=== PATIENT | female | born 1995 | race Caucasian/White ===

== ENCOUNTER 2023-06-06 19:25 | Emergency (ER) | payer BC, OTHER ==
[2023-06-06] MEDS ORDERED: Sodium Chloride 0.9% 1000 ML 1,000 ML ONE (20:08)
[2023-06-06] MEDS ORDERED: TYLENOL 325 MG ONE (20:08)
[2023-06-06] MEDS: Sodium Chloride 0.9% 1000 ML 1,000 ML IV STA (20:12)
[2023-06-06] MEDS: TYLENOL 325 MG PO STA (20:12)
--- NOTE | 2023-06-06 20:13 | ERPHSYRPT ---
- History of Present Illness Time Seen by Provider: 06/06/23 19:55 Source: patient Exam Limitations: no limitations Patient Subjective Stated Complaint: sore throat, headache, fever, body aches that started today Triage Nursing Assessment: pt ambulatory to bed by self with steady gait, pt alert and oriented x3, skin pwd, pt c/o headache, sorethroat, body aches, fever that started today, voice is hoarse during triage, pt febrile of 102.8 Physician History: 28-year-old female presents to our ED for evaluation of fever frontal headache sore throat body aches. Symptoms symptoms have been ongoing for 1 day. Patient has been coughing excessively. Cough is dry nonproductive. Patient has mild laryngitis on exam. No rash. No vomiting no diarrhea. No neck pain no nuchal rigidity. No photophobia no meningeal signs. Symptoms are constant. Symptoms are moderate in intensity. No specific worsening or improving factors. Patient denies a history of the same. She voices no other complaints or concerns at this time. Portions of this note were created with voice recognition technology. There may be grammatical, spelling, punctuation or sound alike errors Timing/Duration: today Severity: moderate Modifying Factors: Improves With: nothing Associated Symptoms: cough, fever, No shortness of breath, No rash Allergies/Adverse Reactions: Opioids - Morphine Analogues Adverse Reaction (Verified 06/06/23 19:43) Vomiting Hx Tetanus, Diphtheria Vaccination/Date Given: Yes Hx Influenza Vaccination/Date Given: No Hx Pneumococcal Vaccination/Date Given: No Immunizations Up to Date: No Travel Risk - International Travel Have you traveled outside of the country in past 3 weeks: No - Emerging Infectious Disease Are you exhibiting symptoms associated with any current EIDs: Yes Symptoms: Fever, Headaches/Body Aches/ - Review of Systems Constitutional: No Symptoms, No Fever, No Chills Eyes: No Symptoms Ears, Nose, & Throat: No Symptoms Respiratory: No Symptoms, No Cough, No Dyspnea Cardiac: No Symptoms, No Chest Pain, No Edema, No Syncope Abdominal/Gastrointestinal: No Symptoms, No Abdominal Pain, No Nausea, No Vomiting, No Diarrhea Genitourinary Symptoms: No Symptoms, No Dysuria Musculoskeletal: No Symptoms, No Back Pain, No Neck Pain Skin: No Symptoms, No Rash Neurological: No Symptoms, No Dizziness, No Focal Weakness, No Sensory Changes Psychological: No Symptoms Endocrine: No Symptoms Hematologic/Lymphatic: No Symptoms Immunological/Allergic: No Symptoms All Other Systems: Reviewed and Negative - Past Medical History Pertinent Past Medical History: Yes Neurological History: No Pertinent History ENT History: Other Cardiac History: No Pertinent History Respiratory History: Asthma Endocrine Medical History: Hypoglycemia Musculoskeletal History: No Pertinent History GI Medical History: No Pertinent History History: No Pertinent History Psycho-Social History: No Pertinent History Female Reproductive Disorders: Menstrual Problems Other Medical History: SCOLIOSIS - Past Surgical History Past Surgical History: Yes Gastrointestinal: Exploratory Laparoscopy Other Surgical History: wisdom teeth removed Significant Family History: no pertinent family hx - Female History Hx Last Menstrual Period: 05/23/23 Hx Now: No - Social History Smoking Status: Never smoker Exposure to second hand smoke: No Alcohol Use: None Drug Use: none Patient Lives Alone: No - Nursing Vital Signs Nursing Vital Signs: Initial Vital Signs Pulse Rate 127 H 06/06/23 19:43 Respiratory Rate 21 06/06/23 19:43 Blood Pressure 130/90 06/06/23 19:43 O2 Sat by Pulse Oximetry 100 06/06/23 19:43 Pain Scale Pain Intensity 2 - Physical Exam General Appearance: no apparent distress, alert Eye Exam: PERRL/EOMI, eyes nml inspection Ears, Nose, Throat Exam: normal ENT inspection, TMs normal, pharynx normal, other (Dry oral mucous membranes. Patient states her right ear is painful and her hearing acuity is decreased. She says her hearing acuity is has been decreased since her ear infection in March and this is not acute. However the pain is new. Right TM injected) Neck Exam: normal inspection, non-tender, supple, full range of motion, No meningismus, No Brudzinski, No Kernig's Respiratory Exam: normal breath sounds, lungs clear, airway intact, No respi ratory distress Cardiovascular Exam: regular rate/rhythm, normal heart sounds, normal peripheral pulses Gastrointestinal/Abdomen Exam: soft, normal bowel sounds, No tenderness, No mass Back Exam: normal inspection, normal range of motion, No CVA tenderness, No vertebral tenderness Extremity Exam: normal inspection, normal range of motion, pelvis stable Neurologic Exam: alert, oriented x 3, cooperative, multimedia programmer II-XII nml as tested, normal mood/affect, sensation nml, No motor deficits Skin Exam: normal color, warm, dry, No rash Lymphatic Exam: No adenopathy SpO2 Interpretation: normal SpO2: 100 O2 Delivery: Room Air - Course Nursing assessment & vital signs reviewed: Yes EKG Interpreted by Me: RATE (125), Sinus Tach, NORMAL AXIS, NORMAL INTERVALS - CT Exams Chest CT Interpretation: Tele-radiologist Report (No PE, negative CT chest) Ordered Tests: Active Orders 24 hr Category Date Time Status Biomass Plant Manager STAT Care 06/06/23 20:04 Active EKG-ER Only STAT Care 06/06/23 20:02 Active IV Insertion STAT Care 06/06/23 20:02 Active Pulse Oximetry (ED) STAT Care 06/06/23 20:02 Active CHEST WITH CONTRAST [CT] Stat Exams 06/06/23 20:58 Taken BLOOD CULTURE Stat Lab 06/06/23 20:10 Received CBC W DIFF Stat Lab 06/06/23 20:00 Completed CBC W DIFF Stat Lab 06/07/23 02:00 Completed CMP Stat Lab 06/06/23 20:00 Completed D-DIMER QUANTITATIVE Stat Lab 06/06/23 20:00 Completed HCG QUALITATIVE, URINE Stat Lab 06/06/23 20:08 Completed UA W/RFX UR CULTURE Stat Lab 06/06/23 20:08 Completed Medication Summary Generic Name Dose Route Start Last Admin Trade Name Freq PRN Reason Stop Dose Admin Ceftriaxone Sodium 1 gm in 100 mls @ 200 mls/hr 06/07/23 02:28 Rocephin 1 Gm / 100 Ml Nacl IV 06/07/23 02:57 STAT ONE Discontinued Medications Generic Name Dose Route Start Last Admin Trade Name Freq PRN Reason Stop Dose Admin Acetaminophen 650 mg 06/06/23 20:07 06/06/23 20:12 Acetaminophen 325 Mg Tablet PO 06/06/23 20:08 650 mg STAT STA Administration Acetaminophen Confirm 06/06/23 20:08 Acetaminophen 325 Mg Tablet Administered 06/06/23 20:09 Dose 650 mg .ROUTE .STK-MED ONE Acetaminophen 650 mg 06/07/23 00:09 06/07/23 00:14 Acetaminophen 325 Mg Tablet PO 06/07/23 00:10 650 mg STAT STA Administration Acetaminophen Confirm 06/07/23 00:11 Acetaminophen 325 Mg Tablet Administered 06/07/23 00:12 Dose 650 mg .ROUTE .STK-MED ONE Sodium Chloride 1,000 mls @ 999 mls/hr 06/06/23 20:02 06/06/23 21:17 Sodium Chloride 0.9% 1000 Ml IV 06/06/23 21:02 Infused .Q1H1M STA Infusion Sodium Chloride Confirm 06/06/23 20:08 Sodium Chloride 0.9% 1000 Ml Administered 06/06/23 20:09 Dose 1,000 mls @ ud .ROUTE .STK-MED ONE Lactated Ringer's 1,000 mls @ 999 mls/hr 06/07/23 00:05 06/07/23 00:14 Lactated Ringers IV 06/07/23 01:05 999 mls/hr .Q1H1M ONE Administration Lactated Ringer's Confirm 06/07/23 00:11 Lactated Ringers Administered 06/07/23 00:12 Dose 1,000 mls @ ud IV .STK-MED ONE Ibuprofen 400 mg 06/06/23 20:53 06/06/23 20:55 Ibuprofen 400 Mg Tablet PO 06/06/23 20:54 400 mg STAT ONE Administration Ibuprofen Confirm 06/06/23 20:54 Ibuprofen 400 Mg Tablet Administered 06/06/23 20:55 Dose 400 mg .ROUTE .STK-MED ONE Lab/Rad Data: Laboratory Result Diagrams 06/07/23 02:00 06/06/23 20:00 Laboratory Results 06/07/23 06/06/23 06/06/23 Range/Units 02:00 20:10 20:08 WBC 15.2 H (4.0-10.5) x10^3/uL RBC 3.62 L (4.1-5.4) x10^6/uL Hgb 11.1 L (12.0-16.0) g/dL Hct 33.6 L (35-47) % MCV 92.8 (78-100) fL MCH 30.7 (26-32) pg MCHC 33.0 (32-36) g/dL RDW 11.6 (11.5-14.0) % Plt Count 333 (150-450) x10^3/uL MPV 9.3 (7.5-11.0) fL Gran % 81.6 H (36.0-66.0) % Immature Gran % (Auto) 0.3 (0.00-0.4) % Nucleat RBC Rel Count 0.0 (0.00-0.1) % Eos # (Auto) 0.07 (0-0.5) x10^3/uL Immature Gran # (Auto) 0.04 H (0.00-0.03) x10^3u/L Absolute Lymphs (auto) 1.86 (1.0-4.6) x10^3/uL Absolute Monos (auto) 0.75 (0.0-1.3) x10^3/uL Absolute Nucleated RBC 0.00 (0.00-0.01) x10^3u/L Lymphocytes % 12.3 L (24.0-44.0) % Monocytes % 5.0 (0.0-12.0) % Eosinophils % 0.5 (0.00-5.0) % Basophils % 0.3 (0.0-0.4) % Absolute Granulocytes 12.39 H (1.4-6.9) x10^3/uL Basophils # 0.04 (0-0.4) x10^3/uL D-Dimer (0.0-0.50) mg/L Sodium (135-145) mmol/L Potassium (3.5-5.1) mmol/L Chloride (98-107) mmol/L Carbon Dioxide (22-30) mmol/L Anion Gap (5-15) MEQ/L BUN (7-17) mg/dL Creatinine (0.52-1.04) mg/dL Estimated GFR ML/MIN Glucose (74-106) mg/dL Calcium (8.4-10.2) mg/dL Total Bilirubin (0.2-1.3) mg/dL AST (14-36) U/L ALT (0-35) U/L Alkaline Phosphatase (38-126) U/L Serum Total Protein (6.3-8.2) g/dL Albumin (3.5-5.0) g/dL Urine Color (Yellow) Urine Appearance (Clear) Urine pH (4.6-8.0) Ur Specific [place] (1.005-1.030) Urine Protein (Negative) Urine Glucose (UA) (Negative) mg/dL Urine Ketones (Negative) Urine Blood (Negative) Urine Nitrite (Negative) Urine Bilirubin (Negative) Urine Urobilinogen (0.2) mg/dL Ur Leukocyte Esterase (Negative) U Hyaline Cast (Auto) (0-2) /LPF Urine Microscopic RBC (0-5) /HPF Urine Microscopic WBC (0-5) /HPF Ur Epithelial Cells (None Seen) /HPF Urine Bacteria (None Seen) /HPF Urine Culture Reflexed (NO) Urine HCG, Qual NEGATIVE (NEGATIVE) Influenza Type A Ag NEGATIVE (NEGATIVE) Influenza Type B Ag NEGATIVE (NEGATIVE) RSV (PCR) NEGATIVE (NEGATIVE) SARS-CoV-2 (PCR) NEGATIVE (NEGATIVE) Group A Strep Antibody NOT DETECTED (NEGATIVE) 06/06/23 06/06/23 06/06/23 Range/Units 20:08 20:00 20:00 WBC (4.0-10.5) x10^3/uL RBC (4.1-5.4) x10^6/uL Hgb (12.0-16.0) g/dL Hct (35-47) % MCV (78-100) fL MCH (26-32) pg MCHC (32-36) g/dL RDW (11.5-14.0) % Plt Count (150-450) x10^3/uL MPV (7.5-11.0) fL Gran % (36.0-66.0) % Immature Gran % (Auto) (0.00-0.4) % Nucleat RBC Rel Count (0.00-0.1) % Eos # (Auto) (0-0.5) x10^3/uL Immature Gran # (Auto) (0.00-0.03) x10^3u/L Absolute Lymphs (auto) (1.0-4.6) x10^3/uL Absolute Monos (auto) (0.0-1.3) x10^3/uL Absolute Nucleated RBC (0.00-0.01) x10^3u/L Lymphocytes % (24.0-44.0) % Monocytes % (0.0-12.0) % Eosinophils % (0.00-5.0) % Basophils % (0.0-0.4) % Absolute Granulocytes (1.4-6.9) x10^3/uL Basophils # (0-0.4) x10^3/uL D-Dimer 0.52 H (0.0-0.50) mg/L Sodium 137 (135-145) mmol/L Potassium 3.7 (3.5-5.1) mmol/L Chloride 101 (98-107) mmol/L Carbon Dioxide 27 (22-30) mmol/L Anion Gap 13.4 (5-15) MEQ/L BUN 12 (7-17) mg/dL Creatinine 0.74 (0.52-1.04) mg/dL Estimated GFR 113.7 ML/MIN Glucose 115 H (74-106) mg/dL Calcium 9.8 (8.4-10.2) mg/dL Total Bilirubin 0.70 (0.2-1.3) mg/dL AST 28 (14-36) U/L ALT 19 (0-35) U/L Alkaline Phosphatase 83 (38-126) U/L Serum Total Protein 8.1 (6.3-8.2) g/dL Albumin 4.7 (3.5-5.0) g/dL Urine Color Yellow (Yellow) Urine Appearance Clear (Clear) Urine pH 7.5 (4.6-8.0) Ur Specific [place] 1.015 (1.005-1.030) Urine Protein Negative (Negative) Urine Glucose (UA) Negative (Negative) mg/dL Urine Ketones Negative (Negative) Urine Blood Moderate A (Negative) Urine Nitrite Negative (Negative) Urine Bilirubin Negative (Negative) Urine Urobilinogen 0.2 (0.2) mg/dL Ur Leukocyte Esterase Negative (Negative) U Hyaline Cast (Auto) NONE SEEN (0-2) /LPF Urine Microscopic RBC 6-10 A (0-5) /HPF Urine Microscopic WBC 3-5 (0-5) /HPF Ur Epithelial Cells None Seen (None Seen) /HPF Urine Bacteria Rare A (None Seen) /HPF Urine Culture Reflexed NO (NO) Urine HCG, Qual (NEGATIVE) Influenza Type A Ag (NEGATIVE) Influenza Type B Ag (NEGATIVE) RSV (PCR) (NEGATIVE) SARS-CoV-2 (PCR) (NEGATIVE) Group A Strep Antibody (NEGATIVE) 06/06/23 Range/Units 20:00 WBC 19.7 H (4.0-10.5) x10^3/uL RBC 4.14 (4.1-5.4) x10^6/uL Hgb 12.8 (12.0-16.0) g/dL Hct 38.1 (35-47) % MCV 92.0 (78-100) fL MCH 30.9 (26-32) pg MCHC 33.6 (32-36) g/dL RDW 11.6 (11.5-14.0) % Plt Count 417 (150-450) x10^3/uL MPV 9.6 (7.5-11.0) fL Gran % 90.4 H (36.0-66.0) % Immature Gran % (Auto) 0.3 (0.00-0.4) % Nucleat RBC Rel Count 0.0 (0.00-0.1) % Eos # (Auto) 0.06 (0-0.5) x10^3/uL Immature Gran # (Auto) 0.06 H (0.00-0.03) x10^3u/L Absolute Lymphs (auto) 0.99 L (1.0-4.6) x10^3/uL Absolute Monos (auto) 0.72 (0.0-1.3) x10^3/uL Absolute Nucleated RBC 0.00 (0.00-0.01) x10^3u/L Lymphocytes % 5.0 L (24.0-44.0) % Monocytes % 3.7 (0.0-12.0) % Eosinophils % 0.3 (0.00-5.0) % Basophils % 0.3 (0.0-0.4) % Absolute Granulocytes 17.79 H (1.4-6.9) x10^3/uL Basophils # 0.05 (0-0.4) x10^3/uL D-Dimer (0.0-0.50) mg/L Sodium (135-145) mmol/L Potassium (3.5-5.1) mmol/L Chloride (98-107) mmol/L Carbon Dioxide (22-30) mmol/L Anion Gap (5-15) MEQ/L BUN (7-17) mg/dL Creatinine (0.52-1.04) mg/dL Estimated GFR ML/MIN Glucose (74-106) mg/dL Calcium (8.4-10.2) mg/dL Total Bilirubin (0.2-1.3) mg/dL AST (14-36) U/L ALT (0-35) U/L Alkaline Phosphatase (38-126) U/L Serum Total Protein (6.3-8.2) g/dL Albumin (3.5-5.0) g/dL Urine Color (Yellow) Urine Appearance (Clear) Urine pH (4.6-8.0) Ur Specific [place] (1.005-1.030) Urine Protein (Negative) Urine Glucose (UA) (Negative) mg/dL Urine Ketones (Negative) Urine Blood (Negative) Urine Nitrite (Negative) Urine Bilirubin (Negative) Urine Urobilinogen (0.2) mg/dL Ur Leukocyte Esterase (Negative) U Hyaline Cast (Auto) (0-2) /LPF Urine Microscopic RBC (0-5) /HPF Urine Microscopic WBC (0-5) /HPF Ur Epithelial Cells (None Seen) /HPF Urine Bacteria (None Seen) /HPF Urine Culture Reflexed (NO) Urine HCG, Qual (NEGATIVE) Influenza Type A Ag (NEGATIVE) Influenza Type B Ag (NEGATIVE) RSV (PCR) (NEGATIVE) SARS-CoV-2 (PCR) (NEGATIVE) Group A Strep Antibody (NEGATIVE) - Progress Progress: improved Progress Note: 28-year-old female presents emergency department for evaluation of fever, frontal headache body aches, cough sore throat. Patient complained of right ear pain during exam. Right TM is injected. No bulging. No mastoid tenderness. She reports diminished hearing acuity right ear currently has a follow-up appointment with a ENT physician however this appointment is not for another 2 weeks. In light of her symptoms or fever and leukocytosis patient received a dose of Rocephin in our ED. A prescription for Augmentin forwarded to patient's pharmacy. Dry oral mucous membranes observed on exam. IV fluids administered. Leukocytosis improved from 19-15. Blood cultures obtained. Results pending symptoms started today. No photophobia no neck pain nuchal rigidity no meningeal signs. Nonremarkable neurologic exam physical exam reveals dry oral mucous membranes. Mother at bedside they voiced no other complaints or concerns at this time. Portions of this note were created with voice recognition technology. There may be grammatical, spelling, punctuation or sound alike errors Complexity of problem addressed is moderate acute complicated No critical care time Complex of data reviewed and analyzed is moderate. Test ordered test reviewed results analyzed and correlated clinically with history and physical exam Risk of complication and or risk of morbidity/mortality of patient management is moderate. Patient received IM Rocephin and prescription for Augmentin forwarded to patient's pharmacy. Vital stable. Time spent to discharge patient is approximately 20 minutes. Plan of care established for shared decision making. No social determinants of health present impede follow-up. Portions of this note were created with voice recognition technology. There may be grammatical, spelling, punctuation or sound alike error 06/07/23 02:34 Counseled pt/family regarding: lab results, diagnosis, rad results - Departure Departure Disposition: Home Clinical Impression: Sore throat (viral), Viral syndrome, Right otitis media, Dehydration Condition: Stable Critical Care Time: No Referrals: KARLY QUINTANILLA [ACTIVE STAFF] - Follow up/PCP as directed Additional Instructions: Discharge/Care Plan MEGAN HORN was seen on 06/07/23 in the Emergency Room. The patient was counseled regarding Diagnosis,Lab results, Imaging studies, need for follow up and when to return to the Emergency Room. Prescriptions given: Discharge Note I have spoken with the patient and/or caregivers. I have explained the patient's condition, diagnosis and treatment plan based on the information available to me at this time. I have answered the patient's and/or caregiver's questions and addressed any concerns. The patient and/or caregivers have as good understanding of the patient's diagnosis, condition and treatment plan as can be expected at this point. The vital signs have been stable. The patient's condition is stable and appropriate for discharge from the emergency department. The patient will pursue further outpatient evaluation with the primary care physician or other designated or consulting physician as outlined in the discharge instructions. The patient and/or caregivers are agreeable to this plan of care and follow-up instructions have been explained in detail. The patient and/or caregivers have received these instruction. The patient/and or caregivers are aware that any significant change in condition or worsening of symptoms should prompt an immediate return to this or the closest emergency department or call 911. Prescriptions: Amox Tr/Potass Clav. 875 mg [Augmentin 875-125 Tablet] 875 mg PO BID 7 Days #14 tablet
[2023-06-06 20:22] LABS: Absolute Neutrophil Ct (ANC) 17.79 x10^3/uL (1.4-6.9); BASOPHIL % 0.3 % (0.0-0.4); Basophil (Absolute #) 0.05 x10^3/uL (0-0.4); Eosinophil % 0.3 % (0.00-5.0); Eosinophil (Absolute #) 0.06 x10^3/uL (0-0.5); Hematocrit 38.1 % (35-47); Hemoglobin 12.8 g/dL (12.0-16.0); IMMATURE GRAN # 0.06 x10^3u/L (0.00-0.03); IMMATURE GRAN % 0.3 % (0.00-0.4); Lymphocyte (Absolute #) 0.99 x10^3/uL (1.0-4.6); Mean Corpuscular Hemoglobin 30.9 pg (26-32); Mean Corpuscular Hgb Concent. 33.6 g/dL (32-36); Mean Platelet Volume 9.6 fL (7.5-11.0); Monocyte (Absolute #) 0.72 x10^3/uL (0.0-1.3); Monocytes % 3.7 % (0.0-12.0); Neutrophil % 90.4 % (36.0-66.0); Platelet Count 417 x10^3/uL (150-450); Red Blood Count 4.14 x10^6/uL (4.1-5.4); Red Cell Distribution Width 11.6 % (11.5-14.0); White Blood Count 19.7 x10^3/uL (4.0-10.5)
[2023-06-06 20:25] LABS: HCG URINE TEST NEGATIVE (NEGATIVE)
[2023-06-06 20:30] LABS: Appearance Clear (Clear); Bacteria Rare /HPF (None Seen); Bilirubin Negative (Negative); Blood Moderate (Negative); Epithelial Cells None Seen /HPF (None Seen); Glucose, Urine Negative (Negative); Hyaline Casts NONE SEEN /LPF (0-2); Ketones Negative (Negative); Leukocyte Esterase Negative (Negative); Nitrite Negative (Negative); Ph 7.5 (4.6-8.0); Protein,Urine Dip Negative (Negative); Specific Gravity 1.015 (1.005-1.030); Urobilinogen 0.2 mg/dL (0.2)
[2023-06-06 20:40] LABS: ALBUMIN 4.7 g/dL (3.5-5.0); ANION GAP 13.4 MEQ/L (5-15); BILIRUBIN,TOTAL 0.7 mg/dL (0.2-1.3); Calcium 9.8 mg/dL (8.4-10.2); Creatinine 1 0.74 mg/dL (0.52-1.04); EST GLOMERULAR FILTRATION RATE 113.7 ML/MIN; Potassium 3.7 mmol/L (3.5-5.1); Total Protein 8.1 g/dL (6.3-8.2)
[2023-06-06 20:45] LABS: ADD URINE CULTURE? NO (NO)
[2023-06-06 20:51] LABS: Group A Strep NOT DETECTED (NEGATIVE)
[2023-06-06 20:53] VITALS: TEMP 101.1
[2023-06-06] MEDS ORDERED: MOTRIN 400 MG ONE (20:54)
[2023-06-06] MEDS: MOTRIN 400 MG PO ONE (20:55)
[2023-06-06 21:04] LABS: INFLUENZA A NEGATIVE (NEGATIVE); INFLUENZA B NEGATIVE (NEGATIVE); RESPIRATORY SYNCTIAL VIRUS NEGATIVE (NEGATIVE); SARS-CoV-2 Xpert Express NEGATIVE (NEGATIVE)
[2023-06-07] MEDS ORDERED: TYLENOL 325 MG ONE (00:11)
[2023-06-07] MEDS ORDERED: Lactated Ringers 1,000 ML IV ONE (00:11)
[2023-06-07] MEDS: Lactated Ringers 1,000 ML IV ONE (00:14)
[2023-06-07] MEDS: TYLENOL 325 MG PO STA (00:14)
[2023-06-07 01:36] VITALS: RESP 25
[2023-06-07 02:05] LABS: Absolute Neutrophil Ct (ANC) 12.39 x10^3/uL (1.4-6.9); BASOPHIL % 0.3 % (0.0-0.4); Basophil (Absolute #) 0.04 x10^3/uL (0-0.4); Eosinophil % 0.5 % (0.00-5.0); Eosinophil (Absolute #) 0.07 x10^3/uL (0-0.5); Hematocrit 33.6 % (35-47); Hemoglobin 11.1 g/dL (12.0-16.0); IMMATURE GRAN # 0.04 x10^3u/L (0.00-0.03); IMMATURE GRAN % 0.3 % (0.00-0.4); Lymphocyte (Absolute #) 1.86 x10^3/uL (1.0-4.6); Lymphocytes % 12.3 % (24.0-44.0); Mean Cell Volume 92.8 fL (78-100); Mean Corpuscular Hemoglobin 30.7 pg (26-32); Mean Platelet Volume 9.3 fL (7.5-11.0); Monocyte (Absolute #) 0.75 x10^3/uL (0.0-1.3); Neutrophil % 81.6 % (36.0-66.0); Platelet Count 333 x10^3/uL (150-450); Red Blood Count 3.62 x10^6/uL (4.1-5.4); Red Cell Distribution Width 11.6 % (11.5-14.0); White Blood Count 15.2 x10^3/uL (4.0-10.5)
[2023-06-07 02:21] VITALS: O2SAT 100
[2023-06-07] MEDS ORDERED: ROCEPHIN 1 GM / 100 ML NaCl 1 GM/100 ML IVPB IV ONE (02:34)
[2023-06-07] MEDS: ROCEPHIN 1 GM / 100 ML NaCl 1 GM/100 ML IVPB IV ONE (02:37)
[2023-06-07 03:03] VITALS: BP 92/65; PULSE 67
--- NOTE | 2023-06-07 08:48 | XRAY ---
Indication: Short of breath. Tachycardia. Positive d-dimer. Multiple contiguous axial images obtained through the chest using 80 cc Isovue 370 contrast and PE protocol. Comparison: None Good opacification pulmonary arteries to include the lobar and segmental branches. No pulmonary embolus. Heart not enlarged. Aorta is normal in course and caliber. No pathologic mediastinal/hilar lymphadenopathy. Lungs inflated and clear. Bony thorax intact. Limited upper abdomen including adrenal glands are unremarkable. Impression: Normal CT chest pulmonary embolus exam.
== END 2023-06-07 03:04 | disposition home or self-care (01) ==
LOC: ED 19:25
DX: J02.9 Acute pharyngitis, unspecified (principal); B34.9 Viral infection, unspecified; H66.91 Otitis media, unspecified, right ear; E86.0 Dehydration; R50.9 Fever, unspecified; R51.9 Headache, unspecified; M79.10 Myalgia, unspecified site; R05.1 Acute cough; Z79.899 Other long term (current) drug therapy
CPT/HCPCS: 0241U; 36000; 36415; 71260; 80053; 81001; 81025; 85025; 85379; 87040; 87651; 93005; 93041; 94760; 99284; J0696; A9270-GY